=== PATIENT | male | born 1935 | race Caucasian/White ===

== ENCOUNTER 2017-06-29 06:18 | Emergency (ER) | payer OTHER ==
[~2017-06-29] VITALS: Ht 182.9 cm; Wt 91.9 kg
[~2017-06-29 06:18] MED LIST: CEPH500 PO; CLEO300C2 PO; GLUCOSAMINE1500 CO1 PO; JANT5TAB2 PO; JANT6TAB PO; LOSA50TA PO; LUTE1CAP PO; MEMA10 PO; METO25 PO; SULF-154 PO; TAMS0.4C67 PO; ZOLP10TA3 PO
[2017-06-29 06:26] VITALS: BP 138/76; PULSE 95; RESP 22; TEMP 98.4; O2SAT 95
[2017-06-29] MEDS ORDERED: diphenhydrAMINE HCL 50 MG/ML VIAL IVP ONE (06:45)
[2017-06-29] MEDS ORDERED: FAMOTIDINE 20 MG/2 ML VIAL IV PUSH ONE (06:45)
[2017-06-29] MEDS ORDERED: methylPREDNISolone SOD SUCC 125 MG/2 ML VIAL IV PUSH ONE (06:45)
[2017-06-29] MEDS ORDERED: SODIUM CHLORIDE 0.9% FLUSH 10 ML FLUSH IV FLUSH PRN (06:45)
--- NOTE | 2017-06-29 06:47 | PD ---
HPI Chief Complaint: GI Complaint Time Seen by Provider: 06:39 Travel History International Travel<30 days: No Contact w/Intl Traveler<30days: No Traveled to known affect area: No History of Present Illness HPI 82-year-old male presents to the emergency department by private transportation the care of his for evaluation of difficulty talking and swallowing and fullness in the throat since yesterday. and patient date the symptoms back to the day before when he received an injection for the flu vaccine and the pneumonia vaccine. Patient was reportedly fine on and Thursday but then started noticing some irritation of the throat reportedly used [id number] Tylenol and warm salt water gargles for symptom resolution he was fine times one week and then started noticing symptoms yesterday. No new medications no new foods no febrile illness or respiratory illness. Review of medication list identifies patient does take captopril for high blood pressure last dose of medication was taken last night. Patient's had no lip swelling or tongue swelling. Patient complains of fullness in the back of his throat. Patient denies any urticaria. There is been no chest pain no shortness of breath no near syncope syncope or nausea or vomiting. Patient does have history of atrial fibrillation as well and is on Coumadin therapy. No report of epistaxis gingival edema hemoptysis hematemesis coughing and emesis melena hematochezia. Patient is under the care of Dr. Kennedy is his [facility]. Although difficulty with speech it seems to be related to patient feeling as though the back of his throat is swollen not due to change in mentation headache visual disturbance speech slurring receptive or expressive aphasia upper or lower extremity numbness tingling or weakness or ataxia of gait. Patient's had no chest pain or shortness of breath. PFSH Past Medical History Narrative Medical CAD hypertension COPD: No tobacco use alcohol use: Nursing notes reviewed Hx Anticoagulant Therapy: Yes Asthma: No Atrial Fibrillation: Yes Anxiety: Yes Depression: No Heart Rhythm Problems: Yes Cancer: No Cardiovascular Problems: Yes High Cholesterol: No Chest Pain: No Congestive Heart Failure: No COPD: Yes Coronary Artery Disease: Yes Diabetes: No Diminished Hearing: Yes Endocrine: No Genitourinary: Yes Hypertension: Yes Immune Disorder: No Kidney Stones: No Musculoskeletal: No Neurologic: No Psychiatric: Yes Reproductive: No Respiratory: Yes Immunizations Current: Yes Renal Failure: No Sleep Apnea: Yes Thyroid Disease: No Social History Alcohol Use: No Tobacco Use: No Substance Use: No Allergies-Medications (Allergen,Severity, Reaction): Coded Allergies: No Known Allergies (Verified , 12/09/15) Reported Meds & Prescriptions Reported Meds & Active Scripts Active Septra Ds (Trimethoprim/Sulfamethoxazole) Tab 1 Tab PO BID Cleocin (Clindamycin HCl) 300 Mg Cap 300 Mg PO QID Reported Jantoven 6 mg (Warfarin Sodium) Warfarin Sodium 6 mg Tab 1 Tab PO DAILY THU,,THU, Jantoven 5 mg (Warfarin Sodium) Warfarin Sodium 5 mg Tab 1 Tab PO DAILY MON,FRI Keflex 500 mg Cap (Cephalexin Monohydrate) 500 Mg Cap 500 Mg PO BID Glucosamine 1500 Complex (Ustbfitnegl-Mrcgsdwxhkd-Fwm C-) 1,500 Com Cap 1,500 Mg PO DAILY Lutein/Zeaxanthin 20-0.8 mg (Lutein-Zeaxanthin) 1 Cap Cap 1 Cap PO DAILY Losartan Potassium 50 MG (Losartan Potassium) 50 Mg Tab 50 Mg PO DAILY Zolpidem Tartrate 10 Mg Tab 10 Mg PO HS Metoprolol Tartrate 25 mg (Metoprolol Tartrate) 25 Mg Tab 25 Mg PO BID Flomax (Tamsulosin HCl) 0.4 Mg Cap 0.4 Mg PO HS Namenda (Memantine) 10 Mg Tab 20 Mg PO DAILY Review of Systems Except as stated in HPI: all other systems reviewed are Neg General / Constitutional: No: Fever, Chills HENT: Positive: Sore Throat, No: Congestion Cardiovascular: No: Chest Pain or Discomfort, Syncope Respiratory: No: Shortness of Breath Gastrointestinal: No: Nausea, Vomiting, Abdominal Pain Genitourinary: No: Flank Pain Musculoskeletal: No: Myalgias, Arthralgias Skin: No Hives Neurologic: No: Weakness Psychiatric: Positive: Anxiety Hematologic/Lymphatic: No: Easy Bruising Physical Exam Narrative GENERAL: Well-developed well-nourished male in no acute distress no respiratory distress. No stridor no hoarseness but some difficulty speaking but no difficulty handling oral secretions SKIN: Warm and dry. HEAD: Normocephalic. EYES: No scleral icterus. No injection or drainage. ENT: Lips without edema/ angioedema tongue without edema/angioedema posterior pharynx uvular edema is noted consistent with angioedema airway is open and patent on direct inspection NECK: Supple, trachea midline. No JVD or lymphadenopathy. CARDIOVASCULAR: Regular rate and rhythm without murmurs, gallops, or rubs. RESPIRATORY: Breath sounds equal bilaterally. No accessory muscle use. GASTROINTESTINAL: Abdomen soft, non-tender, nondistended. MUSCULOSKELETAL: No cyanosis, or edema. BACK: Nontender without obvious deformity. No CVA tenderness. Data Data Last Documented VS Vital Signs Date Time Temp Pulse Resp B/P (MAP) Pulse Ox O2 Delivery O2 Flow Rate FiO2 06/29/17 06:26 98.4 95 22 138/76 (96) 95 Orders Orders Basic Metabolic Panel (Bmp) (06/29/17 06:39) Complete Blood Count With Diff (06/29/17 06:39) Ecg Monitoring (06/29/17 06:39) Iv Access Insert/Monitor (06/29/17 06:39) Oximetry (06/29/17 06:39) Diphenhydramine Inj (Benadryl Inj) (06/29/17 06:45) Methylprednisolone So Succ Inj (Solumedr (06/29/17 06:45) Famotidine Inj (Pepcid Inj) (06/29/17 06:45) Sodium Chloride 0.9% Flush (Ns Flush) (06/29/17 06:45) Prothrombin Time / Inr (Pt) (06/29/17 06:39) MDM Medical Decision Making Medical Screen Exam Complete: Yes Emergency Medical Condition: Yes Medical Record Reviewed: Yes Differential Diagnosis Angioedema, soft tissue mass, adverse medication reaction, allergic reaction, also to consider anaphylaxis Narrative Course Patient placed on color television console monitor continuous pulse oximetry IV access obtained patient administered Benadryl and Solu-Medrol and Pepcid IV Carol Kenney MD Jun 29, 2017 06:47
[2017-06-29 06:51] VITALS: O2SAT 95
[2017-06-29 06:56] LABS: AUTOMATED NEUTROPHIL # 12.6 TH/MM3 (1.8-7.7); BASOPHIL # 0.1 TH/MM3 (0-0.2); BASOPHIL % 0.6 % (0.0-2.0); EOSINOPHIL # 0.1 TH/MM3 (0-0.4); EOSINOPHIL % 0.6 % (0.0-4.0); HEMATOCRIT 51.7 % (39.0-51.0); LYMPH % 11.9 % (9.0-44.0); LYMPHOCYTE # 1.8 TH/MM3 (1.0-4.8); MEAN CELL VOLUME 88.8 FL (80.0-100.0); MEAN CORPUSCULAR HEMOGLOBIN 29.5 PG (27.0-34.0); MEAN CORPUSCULAR HGB CONC 33.3 % (32.0-36.0); MONO % 6.1 % (0.0-8.0); NEUT % 80.8 % (16.0-70.0); PLATELET COUNT 223 TH/MM3 (150-450); RED BLOOD COUNT 5.82 MIL/MM3 (4.50-5.90); RED CELL DISTRIBUTION WIDTH 12.7 % (11.6-17.2); WHITE BLOOD COUNT 15.5 TH/MM3 (4.0-11.0)
[2017-06-29 07:02] LABS: HEMO FLAGS DIFF FINAL
[2017-06-29 07:04] LABS: POTASSIUM 4.2 MEQ/L (3.5-5.1)
[2017-06-29 07:07] LABS: BICARBONATE 24.6 MEQ/L (21.0-32.0); INTERNATIONAL NORMALIZED RATIO 2.3 RATIO; PROTHROMBIN TIME - PATIENT 26.8 SEC (9.8-11.6)
[2017-06-29] MEDS ORDERED: TAMS0.4C4 PO (07:18)
[2017-06-29] MEDS ORDERED: NAME10TA PO (07:19)
[2017-06-29] MEDS ORDERED: FURO40TA PO (07:23)
[2017-06-29] MEDS ORDERED: SPIR25TA PO (07:24)
[2017-06-29] MEDS ORDERED: AMLO5TAB2 PO (07:25)
[2017-06-29] MEDS ORDERED: CAPT25TA2 PO (07:25)
[2017-06-29] MEDS ORDERED: JANT5TAB PO (07:27)
[2017-06-29] MEDS ORDERED: JANT6TAB PO (07:28)
[2017-06-29] MEDS ORDERED: CARV12.52 PO (07:30)
[2017-06-29] MEDS ORDERED: GLUC100013 PO (07:31)
[2017-06-29] MEDS ORDERED: IOHEXOL 350 MG/ML 10 ML VIAL (for RAD DIAG) IVCONTRAST ONE (08:32)
[2017-06-29 09:50] VITALS: BP 117/84; PULSE 96; RESP 16; O2SAT 96
--- NOTE | 2017-06-29 10:24 | RADRPT ---
EXAM DATE/TIME: 06/29/2017 08:21 [facility] COMPARISON: No previous studies available for comparison. INDICATIONS : Difficulty swallowing since yesterday. IV CONTRAST: 70 cc Omnipaque 350 (iohexol) IV RADIATION DOSE: 19.7 CTDIvol (mGy) MEDICAL HISTORY : Hypertension. Chronic obstructive pulmonary disease. Anticoagulant therapy. SURGICAL HISTORY : None. ENCOUNTER: Initial ACUITY: 2 days PAIN SCALE: 0/10 LOCATION: middle This would be considered an anaphylactic reaction to contrast and patient should be appropriately med icated TECHNIQUE: Volumetric scanning of the neck was performed. Using automated exposure control and adjustment of th e mA and/or kV according to patient size, radiation dose was kept as low as reasonably achievable to obtain optimal diagnostic quality images. DICOM format image data is available electronically for r eview and comparison. FINDINGS: There is marked enlargement of the tonsil on the left side measuring 3 CM by 2 CM with abnormal thick ening of the soft palate and marked enlargement of the uvula narrowing the oropharyngeal airway. No d iscrete abscess is identified. There is edema in the prestyloid parapharyngeal space as well as thick ening of the platysma on the left side. There is adenopathy involving the lymph nodes in the left par otid gland as well as in route to on the left. The glottic and subglottic airway is unremarkable. The re is a 5 mm dental nodule in the left lobe of the thyroid gland. 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 CONCLUSION: 1. Extensive phlegmon involving the soft palate and left tonsil narrowing the oropharyngeal airway wi thout evidence of drainable abscess. Gage Robison MD on June 29, 2017 at 10:12 Board Certified Radiologist. This report was verified electronically.
[2017-06-29] MEDS ORDERED: AUGM875T3 PO (10:38)
[2017-06-29] MEDS ORDERED: PRED10PA PO (10:38)
--- NOTE | 2017-06-29 10:39 | PD ---
Physical Exam Date Seen by Provider: Jun 29, 2017 Narrative Care was assumed at [address] of the soft tissues of his neck for further evaluation of uvular edema. The patient is not having any trouble protecting his airway and he is not having any trouble handling his own secretions. To my exam, he does have edema of the left soft palate and uvula. Data Data Last Documented VS Vital Signs Date Time Temp Pulse Resp B/P (MAP) Pulse Ox O2 Delivery O2 Flow Rate FiO2 06/29/17 09:50 96 16 117/84 (95) 96 Room Air 06/29/17 06:26 98.4 Orders Orders Basic Metabolic Panel (Bmp) (06/29/17 06:39) Complete Blood Count With Diff (06/29/17 06:39) Ecg Monitoring (06/29/17 06:39) Iv Access Insert/Monitor (06/29/17 06:39) Oximetry (06/29/17 06:39) Diphenhydramine Inj (Benadryl Inj) (06/29/17 06:45) Methylprednisolone So Succ Inj (Solumedr (06/29/17 06:45) Famotidine Inj (Pepcid Inj) (06/29/17 06:45) Sodium Chloride 0.9% Flush (Ns Flush) (06/29/17 06:45) Prothrombin Time / Inr (Pt) (06/29/17 06:39) Ct Soft Tiss Neck W Iv Cont (06/29/17 07:25) Iohexol 350 Inj (Omnipaque 350 Inj) (06/29/17 08:32) Ampicillin-Sulbactam Inj (Unasyn Inj) (06/29/17 10:45) Labs Laboratory Tests Test 06/29/17 06:40 White Blood Count 15.5 TH/MM3 Red Blood Count 5.82 MIL/MM3 Hemoglobin 17.2 GM/DL Hematocrit 51.7 % Mean Corpuscular Volume 88.8 FL Mean Corpuscular Hemoglobin 29.5 PG Mean Corpuscular Hemoglobin Concent 33.3 % Red Cell Distribution Width 12.7 % Platelet Count 223 TH/MM3 Mean Platelet Volume 7.8 FL Neutrophils (%) (Auto) 80.8 % Lymphocytes (%) (Auto) 11.9 % Monocytes (%) (Auto) 6.1 % Eosinophils (%) (Auto) 0.6 % Basophils (%) (Auto) 0.6 % Neutrophils # (Auto) 12.6 TH/MM3 Lymphocytes # (Auto) 1.8 TH/MM3 Monocytes # (Auto) 0.9 TH/MM3 Eosinophils # (Auto) 0.1 TH/MM3 Basophils # (Auto) 0.1 TH/MM3 CBC Comment DIFF FINAL Differential Comment Prothrombin Time 26.8 SEC Prothromb Time International Ratio 2.3 RATIO Blood Urea Nitrogen 21 MG/DL Creatinine 1.20 MG/DL Random Glucose 128 MG/DL Calcium Level 8.8 MG/DL Sodium Level 133 MEQ/L Potassium Level 4.2 MEQ/L Chloride Level 101 MEQ/L Carbon Dioxide Level 24.6 MEQ/L Anion Gap 7 MEQ/L Estimat Glomerular Filtration Rate 58 ML/MIN MDM Supervised Visit with JUAN: No Narrative Course CBC & BMP Diagram 06/29/17 06:40 Calcium Level 8.[address] 06/29/17 0727 Signed Impressions: Service Date/Time: Thursday, June 29, 2017 08:21 - CONCLUSION: 1. Extensive phlegmon involving the soft palate and left tonsil narrowing the oropharyngeal airway without evidence of drainable abscess. Gage Robison MD Disposition has been discussed with the patient and his . Admission has been offered. The patient prefers to go home. He has been given strict instructions to return for increased difficulty swallowing or breathing. I will give him a dose of Unasyn prior to discharge and will discharge him on Augmentin and prednisone. Sepsis Criteria SIRS Criteria (2 or more): Heart rate over 90, WBC > 36388, < 4000 or > 10% bands Sepsis Criteria (SIRS+source): Infect source susp/known Criteria Outcome: Meets SIRS criteria, Meets sepsis criteria Diagnosis Primary Impression: Peritonsillar cellulitis Patient Instructions: General Instructions, Peritonsillar Abscess (DC) Additional Instruction: Return here for difficulty breathing or difficulty swallowing. Med/Other Pt SpecificInfo: Prescription(s) given Scripts Prednisone (21) 10 mg tab Dose Pack (Prednisone (21) 10 mg tab Dose Pack) 10 Mg Pack 10 MG PO DIRECTED for Inflammation, #1 DSPK 0 Refills Prov: Gabrielle Ash MD 06/29/17 Amoxicillin-Clavulanate (Augmentin) 875-125 Mg Tab 1 TAB PO BID for Infection for 7 Days, #14 TAB 0 Refills Prov: Gabrielle Ash MD 06/29/17 Disposition: 01 DISCHARGE HOME Condition: Stable Gabrielle Ash MD Jun 29, 2017 10:39
[2017-06-29] MEDS ORDERED: AMPICILLIN-SULBACTAM INJ 3 GM in SODIUM CHLORIDE 0.9% INJ 100 ML IV ONE (10:45)
[2017-06-29 11:18] VITALS: BP 140/68; PULSE 115; RESP 18; O2SAT 96
== END 2017-06-29 11:42 | disposition home or self-care (01) ==
LOC: PHED 06:18
DX: J36 Peritonsillar abscess (principal); I10 Essential (primary) hypertension; I25.10 Atherosclerotic heart disease of native coronary artery without angina pectoris; I48.91 Unspecified atrial fibrillation; Z79.01 Long term (current) use of anticoagulants
CPT/HCPCS: 70491; 80048; 85025; 85610; 96365; 96375; 99285; J0295; J1200; J2930; Q9967